=== PATIENT | male | born 1965 | race Two or more races ===

== ENCOUNTER 2024-12-03 09:06 | Outpatient (CLI) | payer OTHER ==
[~2024-12-03] VITALS: Ht 170.2 cm; Wt 77.1 kg
[2024-12-03] MEDS: REGADENOSON 0.4 MG/5 ML SYRG IV ONE ×2 (11:16→11:17)
--- NOTE | 2024-12-03 12:30 | DVHSR ---
APPROVED REPORT Exam: Nuclear Stress Test BMI: 0 Stress Test Details HR Max Heart Rate (APMHR): 163.076871 bpm Target HR (85% APMHR): 138.639590 bpm BP ECG Stress ECG Conclusion lvef 42% minor inferoseptal reversible defect NM EXAM: Myocardial Perfusion REST/STRESS Imaging Protocol: Rest Tc-99m/Stress Tc-99m 1 day Resting Data Rest SPECT myocardial perfusion imaging was performed in supine position 60 minutes following the int ravenous injection of 12.5 mCi of Tc-99m Sestamibi. Time of rest injection: 0950 Time of rest imagin Administration Route: IV Administration Site: Left AC Pharmacologic Stress Pharmacologic stress test was performed by injecting Regadenoson 0.4 mg IV push followed by the intra venous injection of 31.1 mCi of Tc-99m Sestamibi. Time of stress injection: 1115 Time of stress imagin Gated Stress SPECT was performed 55 minutes after stress injection. The images were gated to evaluate regional wall motion and calculate left ventricular ejection fracti on. Nuclear Conclusion Nuclear Findings: positive for ischemia lvef 42% minor inferoseptal reversible defect
== END 2024-12-03 17:00 | disposition home or self-care (01) ==
LOC: XYW 09:06
PROVIDERS: ATTEND Specialist
DX: I25.9 Chronic ischemic heart disease, unspecified (principal); I10 Essential (primary) hypertension; I49.3 Ventricular premature depolarization
CPT/HCPCS: 78452; 93017; A9500; J2785